=== PATIENT | male | born 1970 | race Caucasian/White ===

== ENCOUNTER 2024-06-08 19:34 | Inpatient (IN) | payer OTHER ==
[2024-06-08 20:26] VITALS: BMI 25.4
[2024-06-08] MEDS ORDERED: chlordiazePOXIDE HCL 25 MG CAPSULE PO PRN (21:37)
[2024-06-08] MEDS ORDERED: NICOTINE POLACRILEX 2 MG GUM BUC PRN (22:00)
[2024-06-08] MEDS ORDERED: NALOXONE HCL 0.4 MG/ML VIAL IM PRN (22:00)
[2024-06-08] MEDS ORDERED: LOPERAMIDE HCL 2 MG CAPSULE PO PRN (22:00)
[2024-06-08] MEDS ORDERED: BENZONATATE 200 MG CAPSULE PO PRN (22:00)
[2024-06-08] MEDS ORDERED: guaiFENesin 600 MG TABLET.ER (FP) PO PRN (22:00)
[2024-06-08] MEDS ORDERED: ACETAMINOPHEN 325 MG TABLET (FP) PO PRN (22:00)
[2024-06-08] MEDS ORDERED: POLYETHYLENE GLYCOL (HEALTHYLAX) 3350 17 GM PACKET PO PRN (22:00)
[2024-06-08] MEDS ORDERED: DICYCLOMINE HCL 10 MG CAPSULE PO PRN (22:00)
[2024-06-08] MEDS ORDERED: IBUPROFEN 400 MG TABLET (FP) PO PRN (22:00)
[2024-06-08] MEDS ORDERED: MAG HYDROX/AL HYDROX/SIMETH 30 ML UNIT-DOSE CUP PO PRN (22:00)
[2024-06-08] MEDS ORDERED: BENZOCAINE/MENTHOL (CHLORASEPTIC ) LOZENGE MM PRN (22:00)
[2024-06-08] MEDS ORDERED: NALOXONE (NARCAN) HCL 4 MG/0.1 ML SPRAY NS PRN (22:00)
[2024-06-08] MEDS ORDERED: BISMUTH SUBSALICYLATE 524 MG/30 ML PO PRN (22:00)
[2024-06-08] MEDS ORDERED: P-EPHED 60MG/TRIPROLIDI 2.5MG TABLET PO PRN (22:00)
[2024-06-08] MEDS ORDERED: MAGNESIUM HYDROX 2400MG/30ML ORAL SUSPENSION 30 ML CUP PO PRN (22:00)
[2024-06-08] MEDS ORDERED: methaDONE HCL 10 MG TABLET (FOR DETOX USE ONLY) ONE (22:06)
[2024-06-08] MEDS ORDERED: chlordiazePOXIDE HCL 25 MG CAPSULE ONE (22:06)
[2024-06-08] MEDS: methaDONE HCL 10 MG TABLET (FOR DETOX USE ONLY) PO ONE (22:11)
[2024-06-08] MEDS: chlordiazePOXIDE HCL 25 MG CAPSULE PO SCH (22:11)
[2024-06-08] MEDS: MELATONIN 5 MG TABLETS PO SCH (22:48)
[2024-06-08] MEDS: THIAMINE 100 MG TABLET PO SCH (22:48)
[2024-06-09] MEDS: cloNIDine HCL 0.1 MG TABLET PO PRN (05:41)
[2024-06-09] MEDS: PRENATAL VITAMINS W/ FOLIC ACID TABLET (FP) PO SCH (09:39)
[2024-06-09] MEDS: NICOTINE POLACRILEX 2 MG LOZENGE BC PRN (11:13)
[2024-06-09 11:28] LABS: POTASSIUM 3.6 mmol/L (3.5-5.1)
[2024-06-09 11:34] LABS: ALBUMIN 3.9 g/dl (3.4-5.0); HEMATOCRIT 43.4 % (35.4-49); HEMOGLOBIN 14.7 GM/dL (11.7-16.9); MCHC 33.8 g/dl (32.0-35.9); MEAN CELL VOLUME 91.7 fl (80-96); MEAN PLT VOLUME 9.9 fl (7.5-11.1); PLATELET COUNT 162 10^3/uL (134-434); RBC 4.73 M/mm3 (4.00-5.60); RDW 14.1 % (11.9-15.9); WHITE BLOOD COUNT 12.2 K/mm3 (4.0-10.0)
[2024-06-09 11:35] LABS: BLOOD UREA NITROGEN 11.8 mg/dL (7-18); CALCIUM 9.5 mg/dL (8.5-10.1)
[2024-06-09 11:38] LABS: CREATININE 0.8 mg/dL (0.55-1.3)
[2024-06-09 11:39] LABS: BILIRUBIN,TOTAL 0.9 mg/dL (0.2-1)
[2024-06-09 11:41] LABS: TOT PROT 7.7 g/dl (6.4-8.2)
[2024-06-09] MEDS: traZODone HCL 50 MG TABLET (FP) PO SCH (22:08)
[2024-06-10] MEDS: chlordiazePOXIDE HCL 25 MG CAPSULE PO SCH (05:22)
[2024-06-10] MEDS: methaDONE HCL 10 MG TABLET (FOR DETOX USE ONLY) PO ONE (10:13)
[2024-06-10] MEDS: METHOCARBAMOL 500 MG TABLET PO PRN (15:18)
[2024-06-10] MEDS: IBUPROFEN 600 MG TABLET (FP) PO PRN (17:12)
[2024-06-11] MEDS ORDERED: chlordiazePOXIDE HCL 10 MG CAPSULE PO PRN
[2024-06-11] MEDS: chlordiazePOXIDE HCL 10 MG CAPSULE PO SCH (05:52)
[2024-06-11 11:39] LABS: HEMATOCRIT 45.4 % (35.4-49); HEMOGLOBIN 15.3 GM/dL (11.7-16.9); MCHC 33.6 g/dl (32.0-35.9); MEAN CELL VOLUME 92.4 fl (80-96); PLATELET COUNT 162 10^3/uL (134-434); RBC 4.92 M/mm3 (4.00-5.60); RDW 13.8 % (11.9-15.9); WHITE BLOOD COUNT 10.6 K/mm3 (4.0-10.0)
[2024-06-11] MEDS: ONDANSETRON *ODT* 4 MG TABLET SL PRN (22:04)
[2024-06-12] MEDS: chlordiazePOXIDE HCL 10 MG CAPSULE PO SCH (05:37)
[2024-06-12] MEDS: methaDONE HCL 10 MG TABLET (FOR DETOX USE ONLY) PO ONE (10:30)
[2024-06-12] MEDS ORDERED: hydrOXYzine PAMOATE 50 MG CAPSULE (FP) PO PRN (10:59)
[2024-06-12] MEDS: cloNIDine HCL 0.1 MG TABLET PO PRN (17:17)
[2024-06-12 20:40] VITALS: RESP 16
[2024-06-12] MEDS: METHOCARBAMOL 500 MG TABLET PO PRN (22:09)
[2024-06-13] MEDS: chlordiazePOXIDE HCL 10 MG CAPSULE PO ONE (05:45)
[2024-06-13 06:34] VITALS: BP 121/90; PULSE 76; TEMP 97.7
[2024-06-14 16:30] LABS: PH,URINE 6.5 (5.0-8.0); URINE APPEARANCE CLEAR; URINE BILIRUBIN NEGATIVE (NEGATIVE); URINE COLOR YELLOW; URINE GLUCOSE (UA) NEGATIVE (NEGATIVE); URINE KETONE NEGATIVE (NEGATIVE); URINE LEUK ESTERASE NEGATIVE (NEGATIVE); URINE NITRITE NEGATIVE (NEGATIVE); URINE PROTEIN NEGATIVE (NEGATIVE); URINE UROBILINOGEN 0.2 mg/dL (0.2-1.0)
== END 2024-06-13 10:13 | disposition home or self-care (01) | DRG 897 ==
LOC: YASAS 19:34 → Y3N 22:04
PROVIDERS: ADMIT Allergy & Immunology; ATTEND Surgery
PROC: HZ2ZZZZ Detoxification Services for Substance Abuse Treatment (ICD-10-PCS; principal; 2024-06-08)
DX: F11.23 Opioid dependence with withdrawal (principal); F14.20 Cocaine dependence, uncomplicated; F10.230 Alcohol dependence with withdrawal, uncomplicated; F12.20 Cannabis dependence, uncomplicated; F17.210 Nicotine dependence, cigarettes, uncomplicated; F31.9 Bipolar disorder, unspecified; Z86.59 Personal history of other mental and behavioral disorders
CPT/HCPCS: 36415; 80053; 80305; 81003; 85027; 86780; 93005; 93010; Q0162